=== PATIENT | male | born 1965 | race Caucasian/White ===

== ENCOUNTER 2022-01-15 06:15 | Day surgery (SDC) | payer MEDICAID ==
[~2022-01-15] VITALS: Ht 175.3 cm; Wt 88.5 kg
[2022-01-15] MEDS ORDERED: MIDAZOLAM HCL 5 MG/5 ML VIAL ONE (09:22)
[2022-01-15] MEDS ORDERED: MEPERIDINE 100 MG INJ. 100 MG/ML VIAL ONE (09:22)
[2022-01-15 14:13] VITALS: BP_SYST 151
== END 2022-01-15 11:55 | disposition home or self-care (01) ==
LOC: SDS 06:15
PROVIDERS: ATTEND Internal Medicine Gastroenterology
DX: R19.5 Other fecal abnormalities (principal); K21.01 Gastro-esophageal reflux disease with esophagitis, with bleeding; D12.3 Benign neoplasm of transverse colon; K29.50 Unspecified chronic gastritis without bleeding; K44.9 Diaphragmatic hernia without obstruction or gangrene; K57.30 Diverticulosis of large intestine without perforation or abscess without bleeding; K64.8 Other hemorrhoids; Z86.010 Personal history of colon polyps; F17.210 Nicotine dependence, cigarettes, uncomplicated; Z88.0 Allergy status to penicillin; Z79.899 Other long term (current) drug therapy; Z20.822 Contact with and (suspected) exposure to COVID-19
CPT/HCPCS: 45385; 43239; 87426; 87081; 36415; 88305; 88312; 88313; 99152; 99153; G0378; J2250; J2175